=== PATIENT | female | born 1970 | race Caucasian/White ===

== ENCOUNTER 2018-04-29 08:33 | Day surgery (SDC) | payer OTHER ==
[~2018-04-29] VITALS: Ht 157.5 cm; Wt 79.4 kg
[2018-04-29 08:59] VITALS: BP 138/86
[2018-04-29 14:21] VITALS: BP 136/82
== END 2018-04-29 13:55 | disposition home or self-care (01) ==
LOC: DS 08:33 → OR 12:00 → DS 13:55
PROVIDERS: Neuromusculoskeletal Medicine, Sports Medicine
PROC: 0LB50ZZ Excision of Right Lower Arm and Wrist Tendon, Open Approach (ICD-10-PCS; principal; 2018-04-29 10:30)
DX: M67.431 Ganglion, right wrist (principal)
CPT/HCPCS: J0690; J1170; J2405; J3010; J3490